=== PATIENT | female | born 1990 | race Caucasian/White ===

== ENCOUNTER 2016-09-09 05:20 | Inpatient (IN) | payer OTHER ==
[~2016-09-09] VITALS: Ht 165.1 cm; Wt 65.9 kg
[~2016-09-09 05:20] MED LIST: CALC1CHW32 PO; FERR1TAB23 PO; PREN1TAB29 PO
[2016-09-09] MEDS ORDERED: LACTATED RINGER'S 1000ML 1,000 ML IV SCH (05:53)
[2016-09-09] MEDS ORDERED: LACTATED RINGER'S 1000ML 1,000 ML IV PRN (05:53)
[2016-09-09 06:25] VITALS: Ht 165.1 cm; Wt 65.9 kg
[2016-09-09 06:40] LABS: HEMATOCRIT 30.4 % (37-47); MEAN CELL VOLUME 83.7 fL (80-100); MEAN CORPUSCULAR HEMOGLOBIN 27.5 pg (25-34); MEAN CORPUSCULAR HGB CONC 32.9 g/dl (32-36); MEAN PLATELET VOLUME 10.9 fL (7.4-10.4); PLATELET COUNT 166 K/uL (130-400); RED BLOOD COUNT 3.63 M/uL (4.2-5.4); WHITE BLOOD COUNT 8.74 K/uL (4.8-10.8)
[2016-09-09] MEDS ORDERED: BUPIVACAINE 0.25% 30 ML VIAL ONE (07:20)
[2016-09-09] MEDS ORDERED: EpHEDrine SULFATE INJ 50 MG/ML AMP ONE (07:20)
[2016-09-09] MEDS ORDERED: FENTANYL CITRATE INJ 50 MCG/1 ML 2 ML VIAL ONE (07:21)
[2016-09-09] MEDS ORDERED: FENTANYL 2MCG/ML ROPIV 1.25MG/ML 100ML BAG EPI ONE (07:21)
[2016-09-09] MEDS ORDERED: NALOXONE HCL INJ 1 MG in SODIUM CHLORIDE 0.9% 1000ML 1,000 ML IV PRN (08:12)
[2016-09-09] MEDS ORDERED: LACTATED RINGER'S 1000ML 500 ML IV PRN (08:12)
[2016-09-09] MEDS ORDERED: PROMETHAZINE HCL INJ 12.5 MG in SODIUM CHLORIDE 0.9% 50ML 50 ML IV PRN (08:15)
[2016-09-09] MEDS ORDERED: ONDANSETRON INJ 2 MG/ML 2 ML VIAL IV PRN (08:15)
[2016-09-09] MEDS ORDERED: DiphenhydrAMINE HCL 50 MG/ML VIAL IV PRN (08:15)
[2016-09-09] MEDS ORDERED: NALBUPHINE HCL INJ 10 MG/ML AMP IV PRN (08:15)
[2016-09-09] MEDS ORDERED: EpHEDrine SULFATE INJ 50 MG/ML AMP IV PRN (08:15)
[2016-09-09] MEDS ORDERED: NALOXONE HCL INJ 0.4 MG/1 ML VIAL/CARP IV PRN (08:15)
[2016-09-09] MEDS ORDERED: FENTANYL 2MCG/ML ROPIV 1.25MG/ML 100ML BAG EPI PRN (08:15)
[2016-09-09] MEDS ORDERED: OXYTOCIN 30 UNITS/500ML NSS IV ONE (08:21)
--- NOTE | 2016-09-09 08:43 | HISTORY & PHYSICAL EXAMINATION ---
DATE OF ADMISSION: 09/09/2016 CHIEF COMPLAINT: Contractions. HISTORY OF PRESENT ILLNESS: The patient is a 26-year-old 5, para 3 at 39 weeks and 5 days gestation who presents to labor and delivery with contractions that began around 2:00 a.m. on the morning of admission. On arrival, she was edmundo every 2-3 minutes spontaneously. She was found to be 4-5 cm, 100% effaced, and -1 station. Her care has been complicated with a subchorionic hemorrhage early on in the which resolved. No other complications. Her GBS status is negative. PAST MEDICAL HISTORY: Significant for abnormal Pap smears and will need a followup Pap smear and colposcopy after delivery. She had 3 spontaneous vaginal deliveries in 2008, 2011 and 2013. One spontaneous miscarriage in 2012. PAST SURGICAL HISTORY: She had a lump removed in her left underarm in 2007. SOCIAL HISTORY: The patient denies tobacco, alcohol or drug use. MEDICATIONS: vitamins. ALLERGIES: No known drug allergies. LABS: Blood type is O positive, group B strep negative, rubella immune, hepatitis B surface antigen negative, RPR nonreactive, and HIV negative. PHYSICAL EXAMINATION: VITAL SIGNS: Blood pressure 116/72, heart rate 96, respiration rate of 18, temperature of 99.3. GENERAL: The patient is awake, alert and oriented x3. She is in moderate distress from her contractions. HEART: Regular rate and rhythm. LUNGS: Clear to auscultation bilaterally. ABDOMEN: Gravid uterus, appropriate for gestational age. Bowel sounds present x4. EXTREMITIES: No clubbing, cyanosis or calf tenderness. VAGINAL EXAM: She is 4-5 cm, 100% effaced, and -1 station. heart tones are category 1. Contractions are every 2-3 minutes. ASSESSMENT AND PLAN: A 26-year-old 5, para 3 at 39 weeks and 5 days gestation, will be admitted to labor and delivery for active labor. She may have her epidural upon request, will augment labor as needed and anticipate vaginal delivery.
[2016-09-09] MEDS ORDERED: SUPERCREAM 0.870 % 15GM JAR EXT PRN (08:45)
[2016-09-09] MEDS ORDERED: LANOLIN OINT EXT PRN ×2 (08:45)
[2016-09-09] MEDS ORDERED: OXYTOCIN 30 UNITS/500ML NSS IV PRN (08:45)
[2016-09-09] MEDS ORDERED: OXYCODONE/ACETAMINOPHEN 5-325 TAB PO PRN (08:45)
[2016-09-09] MEDS ORDERED: ACETAMINOPHEN 325 MG TAB PO PRN (08:45)
[2016-09-09] MEDS ORDERED: DIPHTHERIA/TETANUS/PERTUSSIS 0.5 ML SYR/VIAL IM. ONE (08:45)
[2016-09-09] MEDS ORDERED: HYDROCORTISONE ACETATE 25 MG SUPP PR PRN (08:45)
[2016-09-09] MEDS ORDERED: IBUPROFEN 600 MG TAB PO PRN (08:45)
[2016-09-09] MEDS ORDERED: BENZOCAINE 20% AER SPR 82.5 GM CAN EXT PRN (08:45)
[2016-09-09] MEDS ORDERED: ACETAMINOPHEN/CODEINE 300/30MG TAB PO PRN ×2 (08:45)
--- NOTE | 2016-09-09 10:02 | DELIVERY SUMMARY ---
DATE OF OPERATION: 09/09/2016 DELIVERY REPORT DATE OF DELIVERY: 09/09/2016. TIME OF DELIVERY: 8:31 a.m. DELIVERY OF PLACENTA: 8:33 a.m. DELIVERY NOTE: The patient is a 26-year-old 5, para 3 at 39 weeks and 5 days gestation who presented to labor and delivery on the morning of 08/14/2016 in active labor. She had spontaneous rupture of membranes and reached complete dilation with the urge to push. The patient pushed to delivery at 8:31 a.m. She delivered a viable female in the right occiput anterior position to an intact perineum. The baby was placed on the patient's abdomen. Cord was clamped x2 and cut. Apgars were 8 at 1 minute and 9 at 5 minute. Please see nursing notes for further baby assessment. Cord blood was then obtained and an intact placenta with 3-vessel cord was delivered at 8:33 a.m. Oxytocin infusion was then began. The lower uterine segment and vagina was cleared of any blood clot and debris. Exploration of the perineum noted no lacerations. Estimated blood loss was 250 mL. All sponge and instrument counts were found to be correct x2. Both patient and baby tolerated the delivery well and were in recovery with stable vital signs. I attest to the content of the Intraoperative Record and any orders documented therein. Any exceptio ns are noted below.
[2016-09-09 12:00] VITALS: BP 138/78; PULSE 90; TEMP 36.8
[2016-09-09 15:17] VITALS: BP 121/93; PULSE 97; TEMP 37; O2SAT 97
[2016-09-09] MEDS: DOCUSATE SODIUM 100 MG CAP PO SCH (20:08)
[2016-09-09 20:10] VITALS: BP 138/83; PULSE 82; TEMP 36.8; O2SAT 97
[2016-09-09 23:10] VITALS: BP 134/84; PULSE 74; TEMP 37.2; O2SAT 96
[2016-09-10 03:50] VITALS: BP 124/85; PULSE 79; TEMP 36.9; O2SAT 97
[2016-09-10 07:39] VITALS: BP 141/93; PULSE 72; TEMP 36.4; O2SAT 98
[2016-09-10 07:56] LABS: HEMATOCRIT 26.7 % (37-47)
[2016-09-10] MEDS ORDERED: PRENATAL VITAMIN TAB PO SCH (08:00)
[2016-09-10] MEDS ORDERED: FERROUS SULFATE 325 MG TAB PO SCH (08:00)
[2016-09-10] MEDS: DOCUSATE SODIUM 100 MG CAP PO SCH (08:27)
--- NOTE | 2016-09-10 09:32 | OB/GYN Progress Note ---
AEROTRIANGULATION SPECIALIST Progress Note Date of Service Sep 10, 2016. Subjective conversation w/ patient, physical exam Ambulation: ambulating normally Voiding: no voiding problems Passing Gas: Yes Diet Tolerance: Regular Diet Lochia: Moderate Feeding Type: Breast Feeding Review of Systems Constitutional: No chills, No fatigue, No fever, No problem reported, No sweats , No weakness, No weight loss Respiratory: No cough, No dyspnea at rest, No dyspnea on exertion, No hemoptysis, No problem reported, No shortness of breath, No sputum, No wheezing Cardiac: No PND, No chest pain, No claudication, No edema, No orthopnea, No palpitations, No problem reported Breast: No breast lump, No breast pain, No change in shape, No nipple discharge , No problem reported, No see HPI Abdomen: No GI bleeding, No constipation, No diarrhea, No nausea, No pain, No problem reported, No vomiting Female : No abnormal vaginal bleeding, No dysuria, No hematuria, No incontinence, No problem reported, No see HPI, No urinary frequency, No vaginal discharge VD day #1 doing well pt wishes to go home d/c home with instructions Objective Vital Signs Date Time Temp Pulse Resp B/P Pulse Ox O2 Delivery O2 Flow Rate FiO2 09/10/16 07:39 36.4 72 18 141/93 98 Room Air 09/10/16 03:50 36.9 79 16 124/85 97 Room Air 09/09/16 23:10 Room Air 09/09/16 23:10 37.2 74 18 134/84 96 Room Air 09/09/16 20:10 36.8 82 16 138/83 97 Room Air 09/09/16 20:10 Room Air 09/09/16 15:20 Room Air 09/09/16 15:17 37.0 97 16 121/93 97 Room Air 09/09/16 12:00 Room Air 09/09/16 12:00 36.8 90 20 138/78 Room Air Physical Exam General Appearance: WELL-APPEARING, WD/WN Respiratory/Chest: chest non-tender, lungs clear, normal breath sounds, no respiratory distress, no accessory muscle use Cardiovascular: regular rate, rhythm, no edema, no gallop, no JVD, no murmur Abdomen: normal bowel sounds, non tender, soft, no organomegaly, no pulsatile mass Fundus: Firm Extremities: normal range of motion, non-tender, normal inspection, no pedal edema, no calf tenderness Laboratory Results Last 24 Hours Test 09/10/16 07:36 Hemoglobin 8.9 g/dL Hematocrit 26.7 % Assessment and Plan Post- Day Number: 1 Continue Routine Care: Vdday #1 pt doing well d/c home with instructions
[2016-09-10] MEDS ORDERED: MTR600X PO (09:33)
--- NOTE | 2016-09-10 09:39 | Discharge Instructions ---
Discharge Instructions Date of Service Sep 10, 2016. Admission Reason for Admission: LABOR Discharge Discharge Diagnosis / Problem: Discharge Goals Goal(s): Routine recovery after delivery Activity Recommendations Activity Limitations: as noted below ACTIVITY RECOMMENDATIONS: * Gradual return to full activity over the next 2-3 weeks. * No lifting - nothing heavier than baby over the next 2-3 weeks. * Do not engage in vigorous exercise, sexual activity or sports until cleared by your physician. * Do not drive or operate any motorized equipment until cleared by your physician. * You may shower/bathe daily. BREAST CARE: If you are not breast feeding: * Wear a supportive bra 24 hours a day for one to two weeks. * Avoid stimulating your breasts and nipples as much as possible during the first few weeks after delivery. * When taking a shower, have the warm water hit your back, not breasts. * When your breasts feel full, apply ice packs. Usually three to four times a day helps ease the discomfort. * Take a mild pain medication (Tylenol/Motrin) when you are uncomfortable. If breast feeding: * Use breast milk to lubricate nipples. Lansinoh cream may be used for sore nipples. You do not need to remove cream prior to breast feeding. If using a different brand of cream, check the label for directions regarding removal of cream prior to nursing. * Wear a supportive bra. * If having problems with breasts or breast feeding, call a corporate health consultant or your health care provider. EPISIOTOMY CARE: After delivery, if you have an episiotomy (stitches), the following steps will ease discomfort and aid healing. * For the first 24 hours after delivery, place ice packs next to your episiotomy to help reduce swelling. * After the first 24 hour-period, sitz baths, either portable or in the tub, are suggested. A shower with a shower arm sprayed over the episiotomy may be comforting. * Antonette care should be done after each voiding and bowel movement. Squirt warm water from a plastic bottle over the perineum (region of the body between the anus and urinary opening) and pat dry. * Use Dermoplast to ease discomfort. Shake container. [place] directly over the episiotomy. * Place a Tucks on a clean sanitary pad next to your episiotomy. OVER THE COUNTER MEDICATION: * For discomfort or pain, you may use Acetaminophen (Tylenol), Ibuprofen (Advil ), or Naproxen (Aleve) following the package directions. * For constipation you may use Colace following the package directions. SPECIAL CARE INSTRUCTIONS: When you are discharged from the hospital, it is important for you to follow the instructions listed below: * During the first week at home, you should be able to care for yourself and your baby. In addition, the usual light household activities are encouraged. * Limit your activities to the way you feel. Do not try to clean the house or move furniture. Be sensible. * If you actively engage in sports and have done so up until the time of your delivery, you may resume these activities as soon as you feel able. This may take up to one month or even longer. Use good judgment. * Continue to take your vitamins for at least six weeks after the of your baby. * Your diet need not be limited unless you were on a special diet before your delivery. Breast-feeding mothers need around 2500 calories per day and at least 64-80 ounces of fluid per day (8 to 10 glasses). * You should eat foods from the four major food groups. Crash diets or fad diets are to be avoided. Eating lean meats, fresh fruits and vegetables, low-fat dairy products, high fiber foods and a regular exercise program, will help you get back to your pre- weight without putting your health at risk. * Constipation is sometimes a problem after delivery. Take a mild laxative as needed. If breast feeding, Milk of Magnesia is acceptable to use. You may use a suppository or Fleets enema if no episiotomy. * A daily shower or tub bath is suggested. Be sure to thoroughly and gently dry the perineum. * A bloody vaginal discharge will usually continue until around four weeks post . A small amount of bleeding may continue for as long as six weeks. Vaginal discharge changes from the bright red bleeding after delivery to pink then brownish and finally yellowish-pink before becoming white and disappearing. * Bleeding may increase with activity. Your first period may come in 4-8 weeks. If you are breast feeding, your period may be delayed even longer. * [place] (sex) can begin whenever both you and your partner feel comfortable and do not have any form of genital infection. It is recommended that you wait until after your return appointment and discuss with your physician. If you have questions, please talk to your health care practitioner. A condom should be used to prevent infection and . * Foreplay, gentle intercourse and lubrication is very important the first several times to prevent pain. A water-based lubricant such as K-Y jelly or Astroglide may be used. * Tampons may be used six weeks after delivery. * Douching should be avoided for 6 weeks after delivery. * If you have RH negative blood and your baby is RH positive, you will receive RHOGAM by injection prior to discharge. The nurse will give you a card to keep with you that has the date and place that you received RHOGAM after delivery. * During your care, you had a Rubella screen done to check for the presence of rubella antibodies in your blood. If your test was negative, you will receive a Rubella vaccine prior to discharge. This vaccine may cause a fever, soreness at the injection site and flu-like symptoms. If these symptoms persist, notify your health care practitioner. is not advised for three months after a Rubella vaccine. There is a higher chance of having a baby with defects if conceived within three months of getting the vaccine. * If you were discharged 24 hours from delivery or before 48 hours: Visiting nurses will come to your home 48 hours after discharge to assess you and your baby. The visiting nurse will meet with you while you are in the hospital to arrange a time and get directions to your home. * Verbalizes understanding of car seat law as reviewed with patient nursing. * Car Seat hand-out given and reviewed with patient by nursing. * Shaken baby information reviewed with patient by nursing. Call you doctor if: * Heavy bleeding (saturating several pads an hour) or passing clots the size of your fist. * A fever >101 degrees F (38.3 degrees C) on two occasions four hours apart and/or chills. * Unusual pain in the pelvic or vaginal areas. * "Baby Blues" lasting longer than two weeks. If you have any questions or concerns, call your health care practitioner at . FOLLOW-UP VISIT: * Please call the office at to schedule a 6 week examination. It is important you keep this appointment. * It is important for you to make arrangements for either yearly or twice yearly check-ups thereafter. . Current Hospital Diet Patient's current hospital diet: Regular OB Diet Discharge Diet Recommended Diet: Regular Diet Pending Studies Studies pending at discharge: no Medical Emergencies . Who to Call and When: Medical Emergencies: If at any time you feel your situation is an emergency, please call 911 immediately. . Non-Emergent Contact Non-Emergency issues call your: Specialist . . "Provider Documentation" section prepared by Vance Hagan. VTE Core Measure Inpt VTE Proph given/why not?: Treatment not indicated
[2016-09-10 14:29] VITALS: BP_DIAS 93; PULSE 72; TEMP 36.4
[2016-09-10] MEDS ORDERED: BISACODYL 5 MG TABEC PO SCH (20:00)
[2016-09-11] MEDS ORDERED: BISACODYL 10 MG SUPP PR PRN (07:00)
== END 2016-09-10 14:42 | disposition home or self-care (01) | DRG 775 ==
LOC: C.OPB 05:20 → C.LD 05:20 → C.OPB 05:55 → C.LD 07:32 → C.OBG 12:09
PROVIDERS: ADMIT Obstetrics & Gynecology; ATTEND Obstetrics & Gynecology
PROC: 10E0XZZ Delivery of Products of Conception, External Approach (ICD-10-PCS; principal; 2016-09-09)
DX: O99.89 Other specified diseases and conditions complicating pregnancy, childbirth and the puerperium (principal); R87.619 Unspecified abnormal cytological findings in specimens from cervix uteri; Z37.0 Single live birth; Z3A.39 39 weeks gestation of pregnancy